=== PATIENT | male | born 1975 | race Asian ===

== ENCOUNTER 2023-08-22 06:22 | Emergency (ER) | payer BC, SELFPAY ==
[2023-08-22 06:30] VITALS: BP 121/84; PULSE 80; RESP 16; TEMP 36.5; O2SAT 98
[2023-08-22] MEDS: diphenhydrAMINE 25 MG CAP (06:34)
--- NOTE | 2023-08-22 06:34 | ED.GENADUL_ITS ---
Discharge Plan Disposition Patient Disposition: Home Condition: Good Discharge Details Clinical Impression: Acute urticaria ED Provider: Melody Ladd Home Meds and New Rx's Prescriptions: Continued atorvastatin 10 mg tablet 10 mg PO DAILY losartan [Cozaar] 100 mg tablet 100 mg PO DAILY metformin 500 mg tablet 1,000 mg PO BID empagliflozin 25 mg tablet 25 mg PO DAILY insulin aspart U-100 [Novolog FlexPen U-100 Insulin] See Rx Instructions .ROUTE .COMPLEX Rx Instructions: 30-35 units w/ breakfast. 20-28 nits with evening heal; gabapentin 300 mg capsule 600 mg PO BID Ozempic 2 mg/dose (8 mg/3 mL) pen injector 2 mg subcut QWEEK insulin glargine 100 unit/mL (3 mL) insulin pen 35 unit subcut DAILY (DME) FreeStyle [place] 14 Day Sensor Kit See Rx Instructions .ROUTE Rx Instructions: As directed Discharge Instructions Instructions: Urticaria (ED) Additional Instructions: Benadryl over the counter every 4-6 hours as needed for hives; follow the directions on the bottle. Call your primary care doctor today to schedule an appointment to followup on your visit here. Return to the emergency department for new or worsening symptoms including wheezing, chest pain, palpitations, feeling like you going to pass, vomiting, or if you have any other concerns. HPI General Mode of arrival: ambulatory . Date/Time Provider Initiated Documentation: 08/22/23 06:34 . Limitations to Documentation: no limitations . Information obtained by: patient . HPI Narrative: 48yo M with DM presenting with diffuse skin rash since 0330 this morning. Had similar symptoms in the past one time after eating shellfish. Rash is 'everywhere', pruritic, and worsening. No nausea, vomiting, or abdominal pain. No chest pain, palpations, or lightheadedness. URI symptoms including cough and rhinnorhea x 2 weeks, not acutely worse this morning. No shellfish yesterday, no new foods or detergents. No history of anaphylaxis. He is otherwise in his usual state of health with no fevers, chills, rash, numbness, tingling, or other concerns. Related Data Home Medications Medication Instructions Recorded Confirmed atorvastatin 10 mg tablet 10 mg PO DAILY 08/22/23 08/22/23 empagliflozin 25 mg tablet 25 mg PO DAILY 08/22/23 08/22/23 flash glucose sensor (FreeStyle 08/22/23 08/22/23 [place]ino 14 Day Sensor kit) gabapentin 300 mg capsule 600 mg PO BID 08/22/23 08/22/23 insulin aspart U-100 See Rx Instructions .Route .COMPLEX 08/22/23 08/22/23 insulin glargine 100 unit/mL (3 35 unit subcut DAILY 08/22/23 08/22/23 mL) subcutaneous pen losartan 100 mg tablet (Cozaar) 100 mg PO DAILY 08/22/23 08/22/23 metformin 500 mg tablet 1,000 mg PO BID 08/22/23 08/22/23 semaglutide 2 mg/dose (8 mg/3 mL) 2 mg subcut QWEEK 08/22/23 08/22/23 subcutaneous pen injector (Ozempic) Allergies Allergy/AdvReac Type Severity Reaction Status Date / Time shellfish derived Allergy Skin Rash Verified 08/22/23 06:34 General Stated Complaint: RashLesion FAHAD: 4 Review of Systems Narrative: see HPI Exam Narrative Exam Narrative: General: Alert, well appearing, well nourished, in no acute distress. Head: Normocephalic, atraumatic Neck: Trachea midline, ?Neck supple. ENT: ?MMM.? No oropharygeal lesions or exudate. No intraoral swelling Cardiac: ?RRR, no murmurs appreciated Resp: No respiratory distress. CTAB. + cough. Abd: ?Soft, non-distended, nontender : ?No suprapubic tenderness. Extremities: ?No deformities.? No peripheral edema. Neurologic: GCS 15. ? Moves all extremities freely against gravity. Skin: Diffuse urticaria trunk and extremities. Course Vital Signs Vital signs: Vital Signs Temperature 36.5 C 08/22/23 06:30 Pulse 80 08/22/23 06:30 Respiratory Rate 16 08/22/23 06:30 Blood Pressure 121/84 08/22/23 06:30 Pulse Oximetry 98 08/22/23 06:30 Temperature 36.5 C 08/22/23 06:30 Temperature Source Oral 08/22/23 06:30 Pulse 80 08/22/23 06:30 Respiratory Rate 16 08/22/23 06:30 Blood Pressure 121/84 08/22/23 06:30 Pulse Oximetry 98 08/22/23 06:30 Oxygen Delivery Method Room Air 08/22/23 06:30 Oxygen Flow Rate 0 08/22/23 06:30 Medical Decision Making 48yo M with DM presenting with diffuse pruritic skin rash worsening since 0330 this morning. Had similar symptoms in the past one time after eating shellfish. No history of anaphylaxis. No shellfish or new exposures yesterday. Vital signs reassuring on arrival, on exam he has diffuse urticaria with an otherwise reassuring exam and no indication of anaphylaxis. Rash not suggestive of DIC, shingles, chickenpox, TEN/SJS. He has not taken anything; will give 50mg PO benadyrl here. No indication for labs or imaging. On reassessment rash improving. Advised continued Benadryl at home, reviewed with patient in detail symptoms of anaphylaxis that should prompt return to the emergency department. Discharged home; discharge instructions and return precautions were reviewed with patient who verbalized understanding. All questions were answered and he is in full agreement with the plan. Quality:SDOH Health Related Social Needs: No Data to Display PFSH All Active Problems (Updated 08/22/23 @ 06:43 by Melody Ladd MD) Acute urticaria (Acute) Social History Smoking/Tobacco Use Status: Never Smoking risk assessment performed?: Yes Alcohol Intake: never Drug use: Never Substance use type: does not use Housing: apartment Do you feel safe at home: Yes Do you feel safe in your relationship?: Yes
== END 2023-08-22 07:06 | disposition home or self-care (01) ==
LOC: ER 07:10
PROVIDERS: Emergency Provider Student in an Organized Health Care Education/Training Program; PCP Physician Assistant
DX: L50.9 Urticaria, unspecified; E11.9 Type 2 diabetes mellitus without complications
CPT/HCPCS: 99282; 99283

== ENCOUNTER 2023-08-23 04:43 | Emergency (ER) | payer BC, SELFPAY ==
[2023-08-23 04:47] VITALS: BP 124/84; PULSE 85; RESP 16; TEMP 36.5; O2SAT 99
--- NOTE | 2023-08-23 04:51 | ED.GENADUL_ITS ---
Discharge Plan Disposition Patient Disposition: Home Condition: Good Discharge Details Clinical Impression: Acute urticaria Primary Care Provider: Mely Lange ED Provider: Melody Ladd Home Meds and New Rx's Prescriptions: Continued atorvastatin 10 mg tablet 10 mg PO DAILY losartan [Cozaar] 100 mg tablet 100 mg PO DAILY metformin 500 mg tablet 1,000 mg PO BID empagliflozin 25 mg tablet 25 mg PO DAILY insulin aspart U-100 [Novolog FlexPen U-100 Insulin] See Rx Instructions .ROUTE .COMPLEX Rx Instructions: 30-35 units w/ breakfast. 20-28 nits with evening heal; gabapentin 300 mg capsule 600 mg PO BID Ozempic 2 mg/dose (8 mg/3 mL) pen injector 2 mg subcut QWEEK insulin glargine 100 unit/mL (3 mL) insulin pen 35 unit subcut DAILY (DME) FreeStyle [place] 14 Day Sensor Kit See Rx Instructions .ROUTE Rx Instructions: As directed Discharge Instructions Instructions: Urticaria (ED) Additional Instructions: Benadryl over the counter every 4-6 hours as needed for hives; follow the directions on the bottle. You can also take cetirizine twice a day; follow the directions on the bottle. Try cool compresses. Call your primary care doctor today to try to move up your appointment to followup on your visit here. Return to the emergency department for new or worsening symptoms including wheezing, chest pain, palpitations, feeling like you going to pass, vomiting, or if you have any other concerns. Referrals: Mely Lange [Primary Care Provider] - [facility] General Mode of arrival: ambulatory . Date/Time Provider Initiated Documentation: 08/23/23 04:46 . Limitations to Documentation: no limitations . Information obtained by: patient . HPI Narrative: 48yo M with DM presenting with diffuse skin rash since yesterday, seen in this ED yesterday morning. See yesterday's note for details of prior visit. Presents today because rash is persistent and spreading, now also on his legs, itching is keeping him awake. Has been taking benadryl every 4-6 hours, last at 0300. Also reports bilateral ear 'stuffiness' and discomfort. Otherwise no symptoms including no nausea, vomiting, abdominal pain, chest pain, palpations, lightheadedness, or fevers. Called his PCP, they are not able to see him until September. Otherwise in his usual state of health. Related Data Home Medications Medication Instructions Recorded Confirmed atorvastatin 10 mg tablet 10 mg PO DAILY 08/22/23 08/23/23 empagliflozin 25 mg tablet 25 mg PO DAILY 08/22/23 08/23/23 flash glucose sensor (FreeStyle 08/22/23 08/22/23 [place] 14 Day Sensor kit) gabapentin 300 mg capsule 600 mg PO BID 08/22/23 08/23/23 insulin aspart U-100 See Rx Instructions .Route .COMPLEX 08/22/23 08/23/23 insulin glargine 100 unit/mL (3 35 unit subcut DAILY 08/22/23 08/23/23 mL) subcutaneous pen losartan 100 mg tablet (Cozaar) 100 mg PO DAILY 08/22/23 08/23/23 metformin 500 mg tablet 1,000 mg PO BID 08/22/23 08/23/23 semaglutide 2 mg/dose (8 mg/3 mL) 2 mg subcut QWEEK 08/22/23 08/23/23 subcutaneous pen injector (Ozempic) Allergies Allergy/AdvReac Type Severity Reaction Status Date / Time shellfish derived Allergy Skin Rash Verified 08/23/23 04:51 General FAHAD: 4 Review of Systems Narrative: see HPI Exam Narrative Exam Narrative: General: Alert, well appearing, well nourished, in no acute distress. Head: Normocephalic, atraumatic Neck: Trachea midline, ?Neck supple. ENT: ?MMM.? No oropharygeal lesions or exudate. No intraoral swelling. TM's clear. Cardiac: ?RRR, no murmurs appreciated Resp: No respiratory distress. CTAB. Abd: ?Soft, non-distended, nontender : ?No suprapubic tenderness. Extremities: ?No deformities.? No peripheral edema. Neurologic: GCS 15. ? Moves all extremities freely against gravity. Skin: Diffuse urticaria trunk and extremities, increased from exam yesterday. Medical Decision Making 48yo M with DM presenting with diffuse skin rash since yesterday, seen in this ED yesterday morning. See yesterday's note for details of prior visit. Today rash is persistent and spreading, now also on his legs, itching is keeping him awake, also reports bilateral ear 'stuffiness' and discomfort. Otherwise no symptoms including no nausea, vomiting, abdominal pain, chest pain, palpations, lightheadedness, or fevers. Vital signs reassuring on arrival, on exam he again has diffuse urticaria, worse on his legs than yesterday. TM's clear, no indication of otitis media. No indication of anaphylaxis. Rash remains consistent with hives and is not suggestive of DIC, shingles, chickenpox, TEN/SJS. No indication for labs or imaging. Will give cetirizine. Patient requests referral for local PCP which was done. Discharged home; discharge instructions and return precautions were reviewed with patient who verbalized understanding. All questions were answered and he is in full agreement with the plan. Quality:SDOH Health Related Social Needs: No Data to Display [facility] All Active Problems (Updated 08/23/23 @ 05:01 by Melody Ladd MD) Acute urticaria (Acute) Social History Smoking/Tobacco Use Status: Never Smoking risk assessment performed?: Yes Alcohol Intake: never Drug use: Never Substance use type: does not use Housing: apartment Do you feel safe at home: Yes Do you feel safe in your relationship?: Yes
[2023-08-23] MEDS: Cetirizine 10 MG TAB PO (05:12)
--- NOTE | 2023-08-23 05:17 | NUR.NOTE ---
Pt placed on care management referral list to establish NEW primary care as soon as possible.
== END 2023-08-23 05:23 | disposition home or self-care (01) ==
LOC: ER 05:21
PROVIDERS: Emergency Provider Student in an Organized Health Care Education/Training Program; PCP Physician Assistant
DX: L50.9 Urticaria, unspecified (principal); E11.9 Type 2 diabetes mellitus without complications; Z79.84 Long term (current) use of oral hypoglycemic drugs; Z79.4 Long term (current) use of insulin
CPT/HCPCS: 99283

== ENCOUNTER 2023-09-05 09:29 | Outpatient (CLI) | payer BC, SELFPAY ==
[2023-09-05 09:16] LABS: Hemoglobin A1C 7.9 % (<5.7)
[2023-09-05 09:21] LABS: ALT 67 U/L (16-63); AST 40 U/L (15-37); Albumin 3.3 g/dL (3.4-5.0); Alkaline Phosphatase 104 U/L (46-116); Anion Gap 11.4 mmol/L (3-11); BUN 19 mg/dL (7-18); Bilirubin, Total 0.5 mg/dL (0.2-1.0); CO2 24.6 mmol/L (21.0-32.0); CREATININE 1.3 mg/dL (0.70-1.30); Calcium 8.2 mg/dL (8.5-10.1); Chloride 103 mmol/L (98-107); Estimated GFR 66.93 (mL/min/1.73m2); Glucose 146 mg/dL (74-106); Potassium 4.2 mmol/L (3.5-5.1); Sodium 139 mmol/L (136-145); Total Protein 7.1 g/dL (6.4-8.2)
[2023-09-05 18:23] LABS: PSA, Screening 0.5 ng/mL (<=3.5)
== END 2023-09-05 09:30 | disposition home or self-care (01) ==
LOC: LBO 09:29
PROVIDERS: PCP Physician Assistant; Visit Provider Physician Assistant
DX: E11.9 Type 2 diabetes mellitus without complications (principal); Z79.4 Long term (current) use of insulin; Z00.00 Encounter for general adult medical examination without abnormal findings; Z12.5 Encounter for screening for malignant neoplasm of prostate
CPT/HCPCS: 36415; 80053; 84153; 83036